=== PATIENT | female | born 1985 | race Caucasian/White ===

== ENCOUNTER 2017-03-10 06:09 | Inpatient (IN) ==
[2017-03-10] MEDS ORDERED: CARBOPROST 250 MCG/ML INJECTION IM PRN (06:14)
[2017-03-10] MEDS ORDERED: MAG-AL + SIM ORAL LIQUID 30ml PO PRN (06:14)
[2017-03-10] MEDS ORDERED: METHYLERGONOVINE 0.2 MG/ML INJECTION IM PRN (06:14)
[2017-03-10] MEDS ORDERED: ACETAMINOPHEN 500 MG TABLET PO PRN ×2 (06:14→16:25)
[2017-03-10] MEDS ORDERED: D5LR 1,000 ML IV PRN ×2 (06:14→06:20)
[2017-03-10] MEDS ORDERED: CALCIUM CARBONATE Chewable 500mg TABLET PO PRN ×2 (06:14→16:25)
[2017-03-10] MEDS ORDERED: LIDOCAINE 1% (10mg/ml) 2mL INJ PF SDV ID PRN (06:14)
--- OUTSIDE RECORDS SUMMARY | 2017-03-10 06:16 | External Medical Summary | Continuity of Care Document ---
:1985 Author Organization [facility] Address [address] [place], [place] [id number] Phone Care Team Providers Name Role Phone Antonino Humphreys MD Unavailable Unavailable Allergies, Adverse Reactions, Alerts Substance Reaction Severity Status WHEAT BRAN Unknown Active gluten Unknown Active OXYCODONE HCL Nausea/Vomiting Unknown Active milk Unknown Active Medications Medication Instructions Dosage Effective Dates (start - Status Comments stop) DHA+Complete - Active 30 mg-975 mcg-300 mg oral pack Problems Condition Effective Dates (start - stop) Clinical Status Iodine-deficiency related diffuse - (endemic) goiter Encounter For Screening For - Malformations 36 weeks gestation of - Threatened Iodine-deficiency related diffuse - (endemic) goiter Encntr screen for infections w sexl - mode of transmiss Encounter for screening for oth - infec/parastc diseases Encounter for suprvsn of normal - , first trimester Encounter for screening of - mother 9 weeks gestation of - Missed AB Threatened - Threatened Threatened - Low lying placenta NOS or w/out - hemorrhage, third trimester Encounter for suprvsn of normal - , third trimester 30 weeks gestation of - Low lying placenta NOS or w/out - hemorrhage, third trimester 30 weeks gestation of - Encounter for suprvsn of normal - , first trimester 13 weeks gestation of - Encounter for suprvsn of normal - , second trimester 20 weeks gestation of - Encounter for suprvsn of normal - , second trimester 24 weeks gestation of - Encounter for suprvsn of normal - , second trimester 17 weeks gestation of - Encounter for suprvsn of normal - , third trimester 34 weeks gestation of - Encounter for suprvsn of normal - , third trimester 32 weeks gestation of - Encounter for suprvsn of normal - , third trimester 28 weeks gestation of - Encounter for suprvsn of normal - , third trimester 37 weeks gestation of - Encounter for suprvsn of normal - , third trimester 39 weeks gestation of - Encounter for suprvsn of normal - , third trimester 38 weeks gestation of - Encounter for suprvsn of normal - , third trimester 36 weeks gestation of - Encounter for screening of - mother 20 weeks gestation of - Procedures Procedure Date Ultrasnd preg uterus, flwup/repeat Results Test Name Date and Time Measure Units Reference Range Abnormal Flag Comments Unknown Advance Directives Directive Yes / No Effective Date File Name Unknown Encounters Encounter Practice Location Reason(s) Diagnoses Date Provider Care Team Description For Visit Members Luisa Urban Encounter for Casper Referring In Womens suprvsn of normal 6-201 [place]. 700 Provider: Danilo EPPS, , third 7 Medical Antonino GALAVIZ Box [id number] weeks [facility] [place], gestation of Moe Fine, [address], 120, Luis Manuel [place], [place], [place], [id number], [place], [place], [id number] [place], [address]. tel:[phone] , [place]. tel:[phone] tel:[phone] Luisa Urban Encounter for Oct-1 [place] Referring In Womens suprvsn of normal 9-201 [place]. 700 Provider: Danilo EPPS, , third 7 Medical Antonino Anderson [email or web address] weeks [facility] 1522, gestation of Moe Fine, [address], 120, Luis Manuel [place], [place], [place], [id number], [place], [place], [place] [id number] [place], [address]. tel: , [place]. tel: tel:[phone] Luisa Urban Encounter for Oct-1 [place] Referring In Womens suprvsn of normal 2-201 [place]. 700 Provider: Danilo EPPS, , third 7 Medical Antonino Anderson [id number] weeks [facility] 1522, gestation of Moe Fine, [address], 120, [place], [place], [place], [id number], [place], [place], [place] [id number] [place], [address]. tel: , [place]. tel: tel:[phone] Luisa Urban Encounter for Oct-0 [place] Referring In Womens suprvsn of normal 5-201 [place]. 700 Provider: Danilo EPPS, , third 7 [facility] Antonino Anderson [id number] weeks [facility] 1522, gestation of Moe Fine, [address], 120, [place], [place], [place], [id number], [place], [place], [place] [id number] [place], [address]. tel: , [place]. tel: tel:[phone] Luisa Urban Iodine-deficiency Oct-0 [place] Referring In Womens Ultrasound related diffuse 5-201 [place]. 700 Provider: Danilo EPPS, (endemic) 7 [facility] Antonino [facility] 1522, For Moe Fine, [address], Screening For 120, Luis Manuel [place], [id number] [place], St, [id number], weeks gestation [place], [place], [place] [id number] [place], [address]. tel: , [place]. tel: tel: [phone] [facility] Encounter for Sep-2 [place] Referring In Womens suprvsn of normal 1-201 [place]. 700 Provider: Danilo EPPS, , third 7 [facility] [id number] weeks Center [facility] 1522, gestation of Moe Fine, [address], 120, [place], [place], St, [id number], [place], [place], [id number] [place], [address]. tel: , [place]. tel: tel: [phone] [facility] Encounter for Sep-0 [place] Referring In Womens suprvsn of normal 7-201 [place]. 700 Provider: Danilo EPPS, , third 7 [facility] [email or web address] weeks [facility] 1522, gestation of Moe Fine, [address], 120, [place], [place], , , [place], [place], [id number] [place], [address]. tel: , [place]. tel: tel: [phone] Luisa Urban Low lying Aug-2 [place] Referring In Womens placenta NOS or 4-201 [place]. 700 Provider: Danilo EPPS, w/out hemorrhage, 7 [facility] 1522, trimesterEncounte Moe Fine, [address], r for suprvsn of 120, Luis Manuel [place], normal , [place], , , third [id number] [place], [place], [place] [id number] [place], [address]. tel: of , [place]. tel: tel: [phone] [facility] Low lying Aug-2 [place] Referring In Womens Ultrasound placenta NOS or 4-201 [place]. 700 Provider: Danilo EPPS, w/out hemorrhage, 7 [facility] third [id number] [facility] 1522, weeks gestation Moe Fine, [address], of 120, Luis Manuel [place], [place], , , [place], [place], [place] [id number] [place], [address]. tel: , [place]. tel: tel:[phone] Luisa Urban Encounter for Aug-0 [place] Referring In Womens suprvsn of normal 8-201 [place]. 700 Provider: Danilo EPPS, , third 7 Medical Antonino PO Box [id number] weeks [facility] 1522, gestation of Moe Fine, [address], 120, Luis Manuel [place], [place], St, [id number], [place], [place], [id number] [place], [address]. tel: , [place]. tel: tel:[phone] Luisa Urban Encounter for Ankit-1 [place] Referring In Womens suprvsn of normal 3-201 [place]. 700 Provider: Danilo EPPS, , second 7 Medical [facility] [id number] weeks [facility] 1522, gestation of Moe Fine, [address], 120, Luis Manuel [place], [place], , [id number], [place], [place], [id number] [place], [address]. tel: , [place]. tel: tel:[phone] Luisa Urban Encounter for Ray-1 [place] Referring In Womens suprvsn of normal 5-201 [place]. 700 Provider: Danilo EPPS, , second 7 [facility] Box [id number] weeks [facility] 1522, gestation of Moe Fine, [address], 120, Luis Manuel G[place], [place] , , [place], [place], [id number] [place], [address]. tel: , [place]. tel: tel:[phone] Luisa Urban Encounter for Ray-1 [place] Referring In Womens Ultrasound 5-201 [place]. 700 Provider: Danilo EPPS, screening of 7 Medical Antonino PO Box [id number] weeks [facility] 1522, gestation of Moe Fine, [address], 120, Luis Manuel [place], [place] [address], , [place], [place], [id number] [place], [address]. tel: , [place]. tel: tel: [phone] Luisa Urban Encounter for May-2 [place] Referring In Womens suprvsn of normal 3-201 [place]. 700 Provider: Danilo EPPS, , second 7 [facility] [id number] weeks Center [facility] 1522, gestation of Moe Fine, [address], 120, Luis Manuel [place], [facility], , [place], [facility] [id number] [place], [address]. tel: , [place]. tel: tel:[phone] Luisa Urban Encounter for Apr-2 [place] Referring In Womens suprvsn of normal 6-201 [place]. 700 Provider: Danilo EPPS, , first 7 [facility] [email or web address] weeks Center [facility] 1522, gestation of Moe Fine, [address], 120, Luis Manuel [place], [place], , , [place], [place], [id number] [place], [address]. tel: , [place]. tel: tel:[phone] Luisa Urban Iodine-deficiency Mar-3 [place] Referring In Womens related diffuse 0-201 [place]. 700 Provider: Danilo EPPS, (endemic) 7 [facility] goiterEncntr [facility] 152, screen for Moe Fine, [address], infections w sexl 120, Luis Manuel [place], mode of [facility], , transmissEncounte [place], [facility] r for screening [id number] [place], [address]. tel: for [facility] , . tel: infec/parastc tel: diseasesEncounter [phone] for suprvsn of normal , first trimesterEncounte r for screening of mother9 weeks gestation of [facility] Missed AB Nov-0 [place] In Womens 6-201 [place]. 700 Danilo EPPS, 6 [facility] 1522, Moe Fine, 120, [place], [place], , [place], [id number] tel: , [place]. tel: [phone] [facility] Threatened Nov-0 [place] Referring In Womens 4-201 [place]. 700 Provider: Danilo EPPS, [address] [place] [address], , Moe Hale, [address], 120, [facility], [place], , , [place], [place], [id number] [place], [address]. tel: , [place]. tel: tel:[phone] [facility] Threatened Nov-0 [place] Referring In Womens 2-201 [place]. 700 Provider: Danilo EPPS, [address] [place] [address], , Moe Hale, [address], 120, [facility], [place], , , [place], [place], [id number] [place], [address]. tel: , [place]. tel: tel:[phone] [facility] Threatened Nov-0 [place] In Womens 1-201 [place]. 700 Danilo EPPS, [address] [address], , Moe Horta, [facility], [place], [place], , [place], [id number] tel: , [place]. tel: [phone] [facility] Threatened Nov-0 [place] Referring In Womens 1-201 [place]. 700 Provider: Danilo EPPS, [address] [place] [id number], , Moe Hale, [address], 120, [facility], [place], , , [place], [place], [id number] [place], [address]. tel: , [place]. tel: tel: [phone] Luisa Urban Ankit-1 [place] Referring In Womens 6-201 [place]. 700 Provider: Danilo EPPS, [address] [place] [address], , Moe Hale, [address], 120, [place] Manuel [place], [place], , , [place], [facility] [id number] [place], [address]. tel: , [place]. tel: tel: [phone] [facility] Sep-1 Cee In Womens 7-201 [facility]. [facility] [place], 2 700 PO Box Medical 1522, [address], , [facility], 120, [id number], [place], [facility], tel: [phone] , [place]. tel: [phone] Luisa Urban Apr-1 [place] In Womens 6-201 [place]. 700 Health [place], 0 Medical PO Box Center 1522, , Moe Horta, 120, [place], [place], [id number], [place], [id number] tel: , [place]. tel: [phone] Family History Family Member Diagnosis Age At Onset Paternal Grandfather Kidney Cancer Paternal Grandfather Stroke Father Celiac Disease Maternal Grandfather Prostate Cancer Maternal Grandmother Cardiovascular Disease Paternal Grandmother Diabetes mellitus Brother Neurological Disorder Paternal Grandfather Brain Cancer Paternal Grandfather Prostate Cancer Maternal Grandmother Cancer, breast Immunizations Vaccine Date Status Comments Influenza, injectable, completed Source: New Immunization Record quadrivalent, preservative free, 3 yrs or older Tdap completed Source: New Immunization Record Payers Payer name Insurance type Covered alliance party ID Authorization(s) [facility] [id number] [facility] [id number] [facility] [id number] Social History Type Description Quantity Date Captured Unknown Vital Signs Date / Height Weight BMI Pulse Blood Temperature Respiratory Body Head BMI Time: Rate Pressure Rate Surface Circumference percentile Area Unknown Chief Complaint And Reason For Visit Unknown Chief Complaint And Reason For Visit Reason For Referral Reason For Referral Unknown Plan Of Care Date Type Action Status Future Order: Radiology Order Ultrasound OB Follow-up ([id number]) Ordered Future Order: Radiology Order Ultrasound OB Follow-up ([id number]) Ordered Future Order: Radiology Order Complete OB Ultrasound > 14 Ordered Weeks ([id number]) Date Type Problem Goal Intervention Status Start Date Unknown. History Of Present Illness Encounter Date Complaint History Of Present Illness This patient has no known history of present illness Functional Status Encounter Date Functional Assessment Cognitive Assessment Unknown Medications Administered Medication Instructions Dosage Effective Dates (start - stop) Status Comments Drug Treatment Unknown Instructions Date Instruction Additional Information HIV and other routine tests risk factors identified by history anticipated course of care nutrition and weight gain counseling, special diet toxoplasmosis precautions (cats / raw meat) sexual activity exercise indications for ultrasound influenza vaccine environmental / work hazards travel use of any medications (including supplements, vitamins, herbs, OTC drugs) domestic violence seat belt use childbirth classes / hospital facilities hospital registration new ob handbook
--- OUTSIDE RECORDS SUMMARY | 2017-03-10 06:16 | External Medical Summary | Continuity of Care Document ---
:1985 Author Organization [facility] Address [address] [place], [place] [id number] Phone Care Team Providers Name Role Phone [...] Effective Dates (start - stop) Clinical Status Encounter for suprvsn of normal - , third trimester 34 weeks gestation of - Threatened Iodine-deficiency related diffuse - (endemic) goiter Encntr screen for infections w sexl - mode of transmiss Encounter for screening for oth - infec/parastc diseases Encounter for suprvsn of normal - , first trimester Encounter for screening of - mother 9 weeks gestation of - Iodine-deficiency related diffuse - (endemic) goiter Encounter For Screening For - Malformations 36 weeks gestation of - Missed AB Threatened [...] weeks gestation of - Procedures Procedure Date OB Visit No Charge Results Test Name Date and Time Measure Units Reference Range Abnormal Flag Comments Unknown Advance Directives Directive Yes / No Effective Date File Name Unknown Encounters Encounter Practice Location Reason(s) Diagnoses Date Provider Care Team Description For Visit Members Luisa Urban Encounter for Oct-0 [place] Referring In Womens suprvsn of normal 5-201 [place]. 700 Provider: Danilo EPPS, , third 7 Medical Antonino Anderson [id number] weeks [facility] 1522, gestation of Moe Fine, [address], 120, Luis Manuel [place], [place], , [id number], [place], [facility] [id number] [place], [address]. tel:[phone] , [place]. tel:[phone] [phone] Luisa Urban Iodine-deficiency Oct-0 [place] Referring In Womens Ultrasound related diffuse 5-201 [place]. 700 Provider: Danilo EPPS, (endemic) 7 Medical Antonino GALAVIZ Box [facility] 1522, For Moe Fine [address], Screening For 120, Luis Manuel [place], [id number] [place], , , weeks gestation [facility], of [id number] [place], [address]. tel: , [place]. tel: tel:[phone] Luisa Urban Encounter for Sep-2 [place] Referring In Womens suprvsn of normal 1-201 [place]. 700 Provider: Danilo EPPS, , third 7 Medical Antonino GALAVIZ Box [id number] weeks Center [facility] 1522, gestation of Moe Fine, [address], 120, Luis Manuel [place], [place], , [id number], [place], [place], [place] [id number] [place], [address]. tel: , [place]. tel: tel:[phone] Luisa Urban Encounter for Sep-0 [place] Referring In Womens suprvsn of normal 7-201 [place]. 700 Provider: Danilo EPPS, , third 7 Medical Antonino Anderson [id number] weeks Center [facility] 1522, gestation of Moe Fine, [address], 120, Luis Manuel [place], [facility], [id number], [place], [place], [id number] [place], [address]. tel: , [place]. tel: tel: [phone] Luisa Urban Low lying Aug-2 [place] Referring In Womens placenta NOS or 4-201 [place]. 700 Provider: Danilo EPPS, w/out hemorrhage, 7 [facility] Antonino Justin third [facility] 1522, trimesterEncounte Moe Fine, [address], r for suprvsn of 120, Luis Manuel [place], normal , [place], , [id number], third [id number] [facility], weeks gestation [id number] [place], [address]. tel: of , [place]. tel: tel:[phone] Luisa Urban Low lying Aug-2 [place] Referring In Womens Ultrasound placenta NOS or 4-201 [place]. 700 Provider: Danilo EPPS, w/out hemorrhage, 7 [facility] Antonino GALAVIZ Box third [id number] [facility] 1522, weeks gestation Moe Fine, [address], of 120, [place], [place], St, [id number], [place], [facility] [id number] [place], [address]. tel: , [place]. tel: tel:[phone] Luisa Urban Encounter for Aug-0 [place] Referring In Womens suprvsn of normal 8-201 [place]. 700 Provider: Danilo EPPS, , third 7 Medical Antonino GALAVIZ Box [id number] weeks [facility] 1522, gestation of Moe Fine, [address], 120, [place] Manuel [place], [place], St, [id number], [place], [place], [id number] [place], [address]. tel: , [place]. tel: tel: [phone] Luisa Urban Encounter for Ankit-1 [place] Referring In Womens suprvsn of normal 3-201 [place]. 700 Provider: Danilo EPPS, , second 7 Medical Antonino Anderson [id number] weeks [facility] 1522, gestation of Moe Fine, [address], 120, [place], [place], [place], [id number], [place], [facility] [id number] [place], [address]. tel: , [place]. tel: tel:[phone] Luisa Urban Encounter for Ray-1 [place] Referring In Womens suprvsn of normal 5-201 [place]. 700 Provider: Danilo EPPS, , second 7 Medical Antonino Anderson [email or web address] weeks [facility] 1522, gestation of Moe Fine, [address], 120, [place], [place], St, [id number], [place], [place], [id number] [place], [address]. tel: , [place]. tel: tel:[phone] Luisa Urban Encounter for Ray-1 [place] Referring In Womens Ultrasound 5-201 [place]. 700 Provider: Danilo EPPS, screening of 7 Medical Antonino GALAVIZ Box [id number] weeks [facility] 1522, gestation of Moe Fine, [address], 120, [place], [place], St, [id number], [place], [facility] [id number] [place], [address]. tel:+ , [place]. tel: tel:[phone] Luisa Urban Encounter for May-2 [place] Referring In Womens suprvsn of normal 3-201 [place]. 700 Provider: Danilo EPPS, , second 7 [facility] [id number] weeks Center [facility] 1522, gestation of Moe Fine, [address], 120, [place], [place], , , [place], [facility] [id number] [place], [address]. tel:+ , [place]. tel: tel:[phone] Luisa Urban Encounter for Apr-2 [place] Referring In Womens suprvsn of normal 6-201 [place]. 700 Provider: Danilo EPPS, , first 7 [facility] [id number] weeks Center [facility] 1522, gestation of Moe Fine, [address], 120, [place], [place], , , [place], [facility] [id number] [place], [address]. tel: , [place]. tel: tel: [phone] Luisa Urban Iodine-deficiency Mar-3 [place] Referring In Womens related diffuse 0-201 [place]. 700 Provider: Danilo EPPS, (endemic) 7 [facility] goiterEncntr [facility] 1522, screen for Moe Fine, [address], infections w sexl 120, Luis Manuel [place], mode of [place], , , transmissEncounte [place], [facility] r for screening [id number] [place], [address]. tel: for ot , . tel: infec/parastc tel: diseasesEncounter [phone] for suprvsn of normal , first trimesterEncounte r for screening of mother9 weeks gestation of Luisa Urban Missed AB Nov-0 [place] In Womens 6-201 [place]. 700 [facility] [place], 6 [facility] 1522, , Moe Horta, 120, [place], [place], , [place], [id number] tel: , [place]. tel: [phone] Luisa Urban Threatened Nov-0 [place] Referring In Womens 4-201 [place]. 700 Provider: Danilo EPPS, [address] [address], , Moe Hale, [address], 120, [place], [place], , , [place], [place], [id number] [place], [address]. tel: , [place]. tel: tel: [phone] Luisa Urban Threatened Nov-0 [place] Referring In Womens 2-201 [place]. 700 Provider: Danilo EPPS, 6 [facility] [place], Moe Fine, [address], 120, Luis Manuel [place], [facility], [id number], [place], [place], [id number] [place], [address]. tel: , [place]. tel: tel: [phone] Luisa Urban Threatened Nov-0 [place] In Womens 1-201 [place]. 700 [facility] [place], [address] [address], , Moe Horta, 120, [place], [place], , [place], [place] [id number] tel: , [place]. tel: [phone] Luisa Urban Threatened Nov-0 [place] Referring In Womens 1-201 [place]. 700 Provider: Danilo EPPS, 6 [facility] 1522, Moe Fine, [address], 120, [place], [place], , , [place], [place], [id number] [place], [address]. tel: , [place]. tel: tel: [phone] Luisa Urban Ankit-1 [place] Referring In Womens 6-201 [place]. 700 Provider: Danilo EPPS, 3 [facility], , Moe O, [address], 120, Luis [place], [place], , [id number], [place], [facility] [address] [place], [address]. tel:+ , [place]. tel: tel: [phone] [facility] Sep-1 Cee In Womens 7-201 [facility]. [facility], 2 [address] [address], [place] [address], , Moe [place], 120, [id number], [place], [place], tel: [phone] , [place]. tel: [phone] [facility] Apr-1 [place] In Womens 6-201 [place]. 700 [facility], 0 Medical [facility] 1522, , Moe Horta, 120, [place], [place], [id number], [place], [id number] tel: , [place]. tel: [phone] Family History Family Member Diagnosis Age At Onset Paternal Grandfather Kidney Cancer Paternal Grandfather Stroke Father Celiac Disease Maternal Grandfather Prostate Cancer Maternal Grandmother Cardiovascular Disease Paternal Grandmother Diabetes mellitus Brother Neurological Disorder Paternal Grandfather Brain Cancer Paternal Grandfather Prostate Cancer Maternal Grandmother Cancer, breast Immunizations Vaccine Date Status Comments Tdap completed Source: New Immunization Record Payers Payer name Insurance type Covered green party ID Authorization(s) [facility] [id number] [facility] [id number] Social History Type Description Quantity Date Captured Alcohol Use Details Caffeine Use Details Unknown Tobacco Use Status Unknown Smoking Status Never smoker Vital Signs Date / Height Weight BMI Pulse Blood Temperature Respiratory Body Head BMI Time: Rate Pressure Rate Surface Circumference percentile Area 186.70 27.5 / lbs 7 mm[Hg] 10:15 kg/m AM eter (2) Chief Complaint And Reason For Visit Unknown Chief Complaint And Reason For Visit Reason For Referral Reason For Referral Unknown Plan Of Care Date Type Action Status Future Order: Radiology Order Ultrasound OB Follow-up ([id number]) Ordered Future Order: Radiology Order Ultrasound OB Follow-up ([id number]) Ordered Future Order: Radiology Order Complete OB Ultrasound > 14 Ordered Weeks ([id number]) Date Type Problem Goal Intervention Status Start [...]
--- OUTSIDE RECORDS SUMMARY | 2017-03-10 06:17 | External Medical Summary | Continuity of Care Document ---
:1985 Author Organization [facility] Address [address] [place], [place] [id number] Phone Care Team Providers Name Role Phone [...] third trimester 32 weeks gestation of - Threatened Iodine-deficiency related diffuse - (endemic) goiter Encounter for screening of - mother Encntr screen for infections w sexl - mode of transmiss Encounter for screening for oth - infec/parastc diseases Encounter for suprvsn of normal - , first trimester 9 weeks gestation of - Missed AB [...] 17 weeks gestation of - Encounter for screening of - mother 20 weeks gestation of - Encounter for suprvsn of normal - , second trimester 20 weeks gestation of - Encounter for suprvsn of normal - , second trimester 24 weeks gestation of - Encounter for suprvsn of normal - , third trimester 28 weeks gestation of - Low lying placenta NOS or w/out - hemorrhage, third trimester 30 weeks gestation of - Encounter for suprvsn of normal - , third trimester 34 weeks gestation of - Procedures Procedure Date OB Visit No Charge Results Test Name Date and Time Measure Units Reference Range Abnormal Flag Comments Unknown Advance Directives Directive Yes / No Effective Date File Name Unknown Encounters Encounter Practice Location Reason(s) Diagnoses Date Provider Care Team Description For Visit Members Luisa Urban Encounter for Sep-2 [place]per Referring In Womens suprvsn of normal 1-201 Campos. 700 Provider: Danilo EPPS, , third 7 Medical Antonino [address] [email or web address] weeks [facility] 1522, gestation of Moe Fine, Tiny Horta, 120, [facility], [facility], [id number], [place], [facility] [id number] [place], [address]. tel:+ , [place]. tel:137 tel: [phone] Luisa Urban Encounter for Sep-0 [place] Referring In Womens suprvsn of normal 7-201 Campos. 700 Provider: Danilo EPPS, , third 7 Medical Antonino GALAVIZ Box [email or web address] weeks [facility] 1522, gestation of Moe Fine, 70Irvin Horta, 120, [facility], [facility], [id number], [place], [facility] [id number] [place], [address]. tel: , [place]. tel:091 tel: [phone] Luisa Urban Low lying Aug-2 [place] Referring In Womens placenta NOS or 4-201 Campos. 700 Provider: Danilo EPPS, w/out hemorrhage, 7 [facility] third [facility] 1522, trimesterEncounte Moe Fine, [address] for suprvsn of 120, Luis Manuel [place], normal , [place], St, [id number], third [email or web address] [facility], weeks gestation [id number] [place], [address]. tel: of , [place]. tel: tel: [phone] Luisa Urban Low lying Aug-2 [place] Referring In Womens Ultrasound placenta NOS or 4-201 Campos. 700 Provider: Danilo EPPS, w/out hemorrhage, 7 [facility] third [email or web address] Center [facility] 1522, weeks gestation Moe Fine, [address], of 120, Luis Manuel [place], [place], , [id number], [place], [place], [id number] [place], [address]. tel: , [place]. tel: tel:[phone] Luisa Urban Encounter for Aug-0 [place] Referring In Womens suprvsn of normal 8-201 Campos. 700 Provider: Danilo EPPS, , third 7 Medical [facility] [email or web address] weeks [facility] 1522, gestation of Moe Fine, [address]Irvin [address] Mychal, 120, Luis Manuel [place], [place], , [id number], [place], [place] [id number] [place], [address]. tel: , [place]. tel: tel:[phone] Luisa Urban Encounter for Ankit-1 [place] Referring In Womens suprvsn of normal 3-201 Campos. 700 Provider: Danilo EPPS, , second 7 Medical [facility] Box [email or web address] weeks [facility] 1522, gestation of Moe Fine, 70Irvin [address] Mychal, 120, Luis Manuel [place], [place], , [id number], [place], [place] [id number] [place], [address]. tel: , [place]. tel: tel:[phone] Luisa Urban Encounter for Ray-1 [place]per Referring In Womens suprvsn of normal 5-201 Campos. 700 Provider: Danilo EPPS, , second 7 Medical Antonino GALAVIZ Box [email or web address] weeks [facility] 1522, gestation of Moe Fine, [address], 120, Luis Manuel [place], [place], St, [id number], [place], [place], [id number] [place], [address]. tel: , [place]. tel: tel:[phone] Luisa Urban Encounter for Ray-1 [place] Referring In Womens Ultrasound 5-201 Campos. 700 Provider: Danilo EPPS, screening of 7 Medical Antonino GALAVIZ Box [email or web address] weeks [facility] 1522, gestation of Moe Fine, Tiny E Mychla, 120, Luis Manuel [place], [place], St, [id number], [place], [place], [id number] [place], [address]. tel: , [place]. tel: tel:[phone] Luisa Urban Encounter for May-2 [place] Referring In Womens suprvsn of normal 3-201 Campos. 700 Provider: Danilo EPPS, , second 7 Medical Antonino GALAVIZ Box [email or web address] weeks [facility] 1522, gestation of Moe Fine, 70Irvin E Mychal, 120, Luis Manuel [place], [place], St, [id number], [place], [place], [id number] [place], [address]. tel: , [place]. tel: tel:[phone] Luisa Urban Encounter for Apr-2 [place] Referring In Womens suprvsn of normal 6-201 Campos. 700 Provider: Danilo EPPS, , first 7 Medical Antonino GALAVIZ Box [email or web address] weeks [facility] 1522, gestation of Moe Fine, Tiny E Mychal, 120, Luis Manuel GANDHI, [place], , [id number], [place], [place], [id number] [place], [address]. tel: , [place]. tel: tel:[phone] Luisa Urban Iodine-deficiency Mar-3 [place] Referring In Womens related diffuse 0-201 [place]. 700 Provider: Danilo EPPS, (endemic) 7 [facility] 152, for Moe Fine, Tiny Horta, screening of 120, Luis Manuel [place], motherEncntr [facility], , screen for [place], [place], infections [place] [id number] [place], [address]. tel: mode of , [place]. tel: transmissEncounte tel: r for screening [phone] for oth infec/parastc diseasesEncounter for suprvsn of normal , first trimester9 weeks gestation of [facility] Missed AB Nov-0 [place] In Womens 6-201 [place]. 700 Danilo EPPS, [address] [place] [address], Moe Fine, [facility], [place], [place], [id number], [place], [id number] tel: , [place]. tel: [phone] Luisa Urban Threatened Nov-0 [place] Referring In Womens 4-201 [place]. 700 Provider: Danilo EPPS, [address] [place] [address], Moe Fine [address], 120, [facility], [facility], , [place], [place], [address] [place], [address]. tel: , [place]. tel: tel: [phone] Luisa Urban Threatened Nov-0 [place] Referring In Womens 2-201 [place]. 700 Provider: Danilo EPPS, [address] [place] [address], Moe Fine [address], 120, [facility], [facility], , [place], [place], [id number] [place], [address]. tel: , [place]. tel: tel: [phone] Luisa Urban Threatened Nov-0 [place] In Womens 1-201 [place]. 700 Danilo EPPS, [address] [place] [address]11532, Moe Fine, 120, [place], [place], , [place], [id number] tel: , [place]. tel: [phone] Luisa Ba Nov-0 [place] Referring In Womens 1-201 [place]. 700 Provider: Danilo EPPS, [address] [place] [address], , Moe Hale, [address], [facility], [facility], [place], , , [place], [facility] [id number] [place], [address]. tel: , [place]. tel: tel: [phone] Luisa Urban Ankit-1 [place] Referring In Womens 6-201 [place]. 700 Provider: Danilo EPPS, [address] [place] [address], , Moe Hale, [address], [facility], [facility], [place], , , [place], [facility] [id number] [place], [address]. tel: , [place]. tel: tel: [phone] Luisa Urabn Sep-1 Cee In Womens 7-201 Princess. [facility], [address] [place] [address], [facility] [place], [facility], [id number], [facility], tel:[phone] , [place]. tel: [phone] Luisa Urban Apr-1 [place] In Womens 6-201 [place]. 700 Health [facility], [address] [place] [address], , Moe Horta, [facility], [place], [place], [id number], [place], [id number] tel: , [place]. tel: [phone] Family History Family Member Diagnosis Age At Onset Paternal Grandfather Kidney Cancer Paternal Grandfather Stroke Father Celiac Disease Maternal Grandfather Prostate Cancer Maternal Grandmother Cardiovascular Disease Paternal Grandmother Diabetes mellitus Brother Neurological Disorder Paternal Grandfather Brain Cancer Paternal Grandfather Prostate Cancer Maternal Grandmother Cancer, breast Immunizations Vaccine Date Status Comments Unknown Payers Payer name Insurance type Covered alliance party ID Authorization(s) BCMARCIA DEL ROSARIO [id number] Social History Type Description Quantity Date Captured Alcohol Use Details Caffeine Use Details Unknown Tobacco Use Status Unknown Smoking Status Never smoker Vital Signs Date / Height Weight BMI Pulse Blood Temperature Respiratory Body Head BMI Time: Rate Pressure Rate Surface Circumference percentile Area 183.50 27.0 116/2017 lbs 9 mm[Hg] 9:34 kg/m AM eter (2) Chief Complaint And Reason For Visit Unknown Chief Complaint And Reason For Visit Reason For Referral Reason For Referral Unknown Plan Of Care Date Type Action Status Appointment Beatriz Mendez BOOKED Appointment Beatriz Mendez BOOKED Future Order: Radiology Order Complete OB Ultrasound > 14 Ordered Weeks ([id number]) Future Order: Radiology Order Ultrasound OB Follow-up ([id number]) Ordered Date Type Problem Goal Intervention Status Start [...]
--- OUTSIDE RECORDS SUMMARY | 2017-03-10 06:17 | External Medical Summary | Continuity of Care Document ---
:1987 Author Organization [facility] Allergies Active Description Code Type Severity Reaction Onset Reported/ Identified Relationship Clinical to Patient Status Yes milk 8922 1 N/A N/A Yes WHEAT BRAN 7908 1 N/A N/A Yes Eggs EGGS 5 N/A N/A Yes gluten 7207 1 N/A N/A Yes OXYCODONE 1559 1 N/A Nausea/Vo HCL miting Medications Medication Packaging Start Date Stop Date Route Dosage Sig Tablet 11/27/2012 NOR-Q-D 6 take 1 tablet by oral route every day Capsule 08/15/2016 AMOXICILLIN 7 take 1 capsule by ORAL route every 8 hours Problems Date Dx Attending Type Code Diagnosis Diagnosed By Coded 03/15/2016 W V72.31 ROUTINE TONSORIAL ARTIST EXAMINATION 10/27/2016 Campos Shirley Z36 Encounter for screening of mother 10/27/2016 Campos Shirley Z3A.20 20 weeks gestation of 01/05/2017 Campos Shirley O44.43 Low lying placenta NOS or w/out hemorrhage, third trimester 01/05/2017 Campos Shirley Z3A.30 30 weeks gestation of 02/16/2017 W E01.0 Iodine-deficiency related diffuse (endemic) goiter 02/16/2017 W Z36.3 Encounter For Screening For Malformations 02/16/2017 W Z3A.36 36 weeks gestation of Procedures Code Description Performed By Performed On 08/28/2009 68291 Specimen handling/transport 08/28/2009 02416 Preventive checkup, new,18-39 yrs 10/27/2016 32005 Ultrasnd exam of preg uterus, compl 01/05/2017 13007 Ultrasnd preg uterus, flwup/repeat 02/16/2017 06162 Ultrasnd preg uterus, flwup/repeat 02/16/2017 31221 Immuniz admnin, 1 vac, sngl/combo TDAP 02/16/2017 97363 VACCINE >7 IM 02/23/2017 53008 Immuniz admnin, 1 vac, sngl/combo Flu 02/23/2017 75186 Vaccine - Quadrivalent Results Encounters ACCT No. Visit Discharge Status Pt. Type Provider Facility Loc./Unit Complaint Date/Time [id number] 02/02/2017 02/02/2017 [facility] Outpatient Casper, 10:10:00 23:59:59 Campos Thompson [id number] 01/19/2017 01/19/2017 [facility] Outpatient [place], 09:30:00 23:59:59 Campos Thompson [id number] 01/05/2017 01/05/2017 [facility] Outpatient Casper, 11:30:00 23:59:59 Campos Thompson [id number] 01/05/2017 01/05/2017 [facility] Outpatient Casper, 11:15:00 23:59:59 Campos Thompson [id number] 12/20/2016 12/20/2016 [facility] Outpatient Casper, 09:15:00 23:59:59 Campos Thompson [id number] 11/24/2016 11/24/2016 [facility] Outpatient Casper, 10:30:00 23:59:59 Campos Thompson [id number] 10/27/2016 10/27/2016 [facility] Outpatient Casper, 11:30:00 23:59:59 Campos Thompson [id number] 10/27/2016 10/27/2016 [facility] Outpatient Casper, 11:15:00 23:59:59 Campos Thompson [id number] 10/07/2016 10/07/2016 [facility] Outpatient Casper, 09:17:00 23:59:59 Campos Thompson [id number] 10/04/2016 10/04/2016 [facility] Outpatient Casper, 10:20:00 23:59:59 Campos Thompson [id number] 09/07/2016 09/07/2016 [facility] Outpatient Cas[place], 11:30:00 23:59:59 Campos Thompson [id number] 08/13/2016 08/13/2016 [facility] Outpatient [place], 18:32:00 23:59:59 Campos Thompson [id number] 08/11/2016 08/11/2016 [facility] Outpatient Casper, 13:15:00 23:59:59 Campos Thompson [id number] 06/08/2016 06/08/2016 [facility] Outpatient [place], 15:20:00 23:59:59 Campos Thompson [id number] 03/15/2016 03/15/2016 [facility] Trina Shirley, 09:20:00 23:59:59 Campos Thompson [id number] 02/23/2017 Document 09:45:00 Registration [id number] 02/16/2017 Document 13:00:00 Registration [id number] 02/16/2017 Document 12:45:00 Registration [id number] 03/15/2016 Document 09:46:16 Registration [id number] 08/28/2009 Document 09:30:00 Registration
--- OUTSIDE RECORDS SUMMARY | 2017-03-10 06:17 | External Medical Summary | Continuity of Care Document ---
:1987 Author Organization [facility] Address [address] [place], [place] [phone] Phone Care Team Providers Name Role Phone [...] Effective Dates (start - stop) Clinical Status Low lying placenta NOS or w/out - hemorrhage, third trimester 30 weeks gestation of - Threatened Iodine-deficiency related diffuse - (endemic) goiter Encntr screen for infections w sexl - mode of transmiss Encounter for screening for oth - infec/parastc diseases Encounter for suprvsn of normal - , first trimester Encounter for screening of - mother 9 weeks gestation of - Missed AB Threatened - Threatened Threatened - Encounter for suprvsn of normal - , first trimester 13 weeks gestation of - Encounter for suprvsn of normal - , second trimester 17 weeks gestation of - Encounter for suprvsn of normal - , second trimester 20 weeks gestation of - Encounter for suprvsn of normal - , second trimester 24 weeks gestation of - Low lying placenta NOS or w/out - hemorrhage, third trimester Encounter for suprvsn of normal - , third trimester 30 weeks gestation of - 20 weeks gestation of - Encounter for screening of - mother Encounter for suprvsn of normal - , third trimester 28 weeks gestation of - 32 weeks gestation of - Encounter for suprvsn of normal - , third trimester Procedures Procedure Date Ultrasnd preg uterus, flwup/repeat Results Test Name Date and Time Measure Units Reference Range Abnormal Flag Comments Unknown Advance Directives Directive Yes / No Effective Date File Name Unknown Encounters Encounter Practice Location Reason(s) Diagnoses Date Provider Care Team Description For Visit Members uLisa Urban 32 weeks Sep-0 [place] Referring In Womens gestation of 7-201 [place]. 700 Provider: Danilo EPPS pregnancyEncclint [address] [place] [address] Antonino [address] r for suprvsn of [place] [address], normal , Moe Fine, [address], third trimester 120, Luis Manuel [place], [facility], [id number], [facility] [id number] [place], [address]. tel: , [place]. tel: tel:[phone] [facility] Low lying Dec-2 [place] Referring In Womens placenta NOS or 4-201 Campos. 700 Provider: Danilo EPPS, w/out hemorrhage, Medical Antonino [address] [place] [address], [facility] Moe Fine, [address], r for suprvsn of 120, Luis Manuel [place], normal , [place], , [id number], third [email or web address] [facility] weeks [place] [id number] [place], [address]. tel: of , [place]. tel: tel:[phone] [facility] Low lying Aug-2 [place] Referring In Womens Ultrasound placenta NOS or 4-201 [place]. 700 Provider: Danilo EPPS, w/out hemorrhage, 7 Medical Antonino PO Box third [email or web address] [facility] 1522, weeks gestation Moe Fine, Tiny E Mychal, of 120, Luis Manuel [place], [place], St, [id number], [place], [place], [address] [place], [address]. tel:+ , [place]. tel: tel:[phone] Luisa Urban Encounter for Aug-0 [place] Referring In Womens suprvsn of normal 8-201 [place]. 700 Provider: Danilo EPPS, , third 7 Medical Antonino PO Box [email or web address] weeks [facility] 15[facility], gestation of Moe Fine, Tiny Horta, 120, Luis Manuel [place], [place] [address], [id number], [place], [place], [address] [place], [address]. tel:+ , [place]. tel: tel:[phone] Urban Encounter for Ankit-1 [place] Referring In Womens suprvsn of normal 3-201 [place]. 700 Provider: Dnailo EPPS, , second 7 Medical Antonino PO Box weeks [facility] 1522, gestation of Moe Fine [address], 120, Luis Manuel GANDHI, [address], [id number], [place], [place], [id number] [place], [address]. tel: , [place]. tel: tel:2440 [phone] Urban Encounter for Ray-1 [place] Referring In Womens suprvsn of normal 5-201 [place]. 700 Provider: Danilo EPPS, , second 7 Medical Antonino PO Box [email or web address] weeks Center [facility] 1522, gestation of Moe Fine, Tiny Horta, 120, Luis Manuel GANDHI, [address], [id number], [place], [place], [id number] [place], [address]. tel: , [place]. tel: tel:2440 [phone] Urban 20 weeks Ray-1 [place] Referring In Womens Ultrasound gestation of 5-201 [place]. 700 Provider: Danilo EPPS, pregnancyEncounte 7 Medical Antonino PO Box r for Center [facility] 1522, screening of Moe Fine, Tiny E Mychal, mother 120, Luis Manuel [place], [place], , [id number], [place], [facility] [id number] [place], [address]. tel:+ , [place]. tel: tel:[phone] Luisa Urban Encounter for May-2 [place] Referring In Womens suprvsn of normal 3-201 [place]. 700 Provider: Danilo EPPS, , second 7 Medical Antonino PO Box [email or web address] weeks Center [facility] 1522, gestation of Moe Fine, Tiny Horta, 120, Luis Manuel [place], [facility], , [place], [place], [address] [place], [address]. tel: , [place]. tel: tel:[phone] Luisa Urban Encounter for Apr-2 [place] Referring In Womens suprvsn of normal 6-201 [place]. 700 Provider: Danilo EPPS, , first 7 Medical Antonino PO Box [email or web address] weeks Center [facility] 1522, gestation of Moe Fine, Tiny Horta, 120, Luis Manuel [place], [place], , , [place], [place], [address] [place], [address]. tel:+ , [place]. tel: tel:[phone] Luisa Urban Iodine-deficiency Mar-3 [place] Referring In Womens related diffuse 0-201 [place]. 700 Provider: Danilo EPPS, (endemic) 7 [facility] Antonino PO Box goiterEncntr Center [facility] 1522, screen for Moe Fine [address], infections w sexl 120, Luis Manuel [place], mode of [place] , , [facility], [facility] r for screening [id number] [place], [address]. tel: for ot , [place]. tel: infec/parastc tel:2440 [facility] [phone] for suprvsn of normal , first trimesterEncounte r for screening of mother9 weeks gestation of [facility] Missed AB Nov-0 [place] In Womens 6-201 [place]. 700 [facility], [address] [place] [address], , Moe Horta, 120, [place], [place], [id number], [place], [place] [id number] tel: , [place]. tel: [phone] [facility] Threatened Nov-0 [place] Referring In Womens 4-201 [place]. 700 Provider: Danilo EPPS [address] [place] [address], , Moe Hale, [address], [facility], [facility], [place], , [address], [place], [place], [id number] [place], [address]. tel: , [place]. tel: tel: [phone] [facility] Threatened Nov-0 [place] Referring In Womens 2-201 [place]. 700 Provider: Danilo EPPS [address] [place] [address], , Moe Hale, [address], 120, [facility], [place], , [id number], [place], [place], [id number] [place], [address]. tel: , [place]. tel: tel: [phone] [facility] Threatened Nov-0 [place] In Womens 1-201 [place]. 700 Danilo EPPS [address] [place] [address], , Moe Horta, 120, [place], [place], [id number], [place], [place] [id number] tel: , [place]. tel: [phone] [facility] Threatened Nov-0 [place] Referring In Womens 1-201 [place]. 700 Provider: Danilo EPPS [address] [place] [address], , Moe Hale, [address], 120, [facility], [place], , , [place], [place], [id number] [place], [address]. tel: , [place]. tel: tel: [phone] Luisa Urban Nov- [place]per Referring In Womens 6-201 [place]. 700 Provider: Health [facility], 3 Medical Antonino PO Box [facility] 1522, , Meo O, [address], 120, Luis Manuel [place], [place], St, [id number], [place], [place], [address] [place], [address]. tel: , [place]. tel: tel: [phone] Luisa Urban Sep- Cee In Womens 7-201 [facility]. [facility], 2 700 [address] [place] [address], [address], Moe GANDHI, 120, [id number], [place], [facility], tel: [phone] [phone] , [place]. tel: [phone] Luisa Urban Aug- [place] In Womens 6-201 [place]. 700 Health [facility], 0 Medical Box [place] 1522, , Moe Horta, 120, [place], [place], [id number], [place], [id number] tel: , [place]. tel: [phone] Family History Family Member Diagnosis Age At Onset Paternal Grandfather Kidney Cancer Paternal Grandfather Stroke Father Celiac Disease Maternal Grandfather Prostate Cancer Maternal Grandmother Cardiovascular Disease Paternal Grandmother Diabetes mellitus Brother Neurological Disorder Paternal Grandfather Brain Cancer Paternal Grandfather Prostate Cancer Maternal Grandmother Cancer, breast Immunizations Vaccine Date Status Comments Unknown Payers Payer name Insurance type Covered constitution party ID Authorization(s) [facility] [id number] Social History Type Description Quantity Date Captured Unknown Vital Signs Date / Height Weight BMI Pulse Blood Temperature Respiratory Body Head BMI Time: Rate Pressure Rate Surface Circumference percentile Area Unknown Chief Complaint And Reason For Visit Unknown Chief Complaint And Reason For Visit Reason For Referral Reason For Referral Unknown Plan Of Care Date Type Action Status Appointment Beatriz Mendez BOOKED Future Order: Radiology Order Ultrasound OB Follow-up ([id number]) Ordered Future Order: Radiology Order Complete OB Ultrasound > 14 Ordered Weeks ([id number]) Date Type Problem Goal Intervention Status Start [...]
--- OUTSIDE RECORDS SUMMARY | 2017-03-10 06:17 | External Medical Summary | Continuity of Care Document ---
:1985 Author Organization [facility] Address [address] [place], [place] [id number] Phone Care Team Providers Name Role Phone [...] - , third trimester Procedures Procedure Date OB Visit No Charge Results Test Name Date and Time Measure Units Reference Range Abnormal Flag Comments Unknown Advance Directives Directive Yes / No Effective Date File Name Unknown Encounters Encounter Practice Location Reason(s) Diagnoses Date Provider Care Team Description For Visit Members Luisa Urban 32 weeks Sep-0 [place] Referring In Womens gestation of 7-201 [place]. 700 Provider: Ector Watts Box r for suprvsn of [place] [address], normal , Moe Fine, [address], third trimester 120, Luis Manuel [place], [facility], [id number], [facility] [id number] [place], [address]. tel:+ , [place]. tel:752 tel: [phone] [facility] [place] Low lying Aug-2 [place] Referring In Womens placenta NOS or 4-201 [place]. 700 Provider: Danilo EPPS w/cristina hemorrhageTila [address] [place] [address], [facility] Moe Fine, [address], r for suprvsn of 120, Luis Manuel [place], normal , [place], , [id number], third [email or web address] [facility], [place] [id number] [place], [address]. tel: of , [place]. tel:[phone] tel: [phone] [facility] [place] Low lying Aug-2 [place] Referring In Womens Ultrasound placenta NOS or 4-201 [place]. 700 Provider: Health PA, w/out hemorrhage, 7 [facility] PO Box third [id number] [facility] 1522, weeks gestation Moe Fine, [address], of 120, Luis Manuel [place], [place], St, , [place], [place], [id number] [place], [address]. tel: , [place]. tel: tel:[phone] Luisa Urban Encounter for Aug-0 [place] Referring In Womens suprvsn of normal 8-201 [place]. 700 Provider: Danilo EPPS, , third 7 Medical Antonino PO Box [id number] weeks [facility] 1522, gestation of Moe Fine, [address], 120, Luis Manuel [place], [place], , , [place], [place], [id number] [place], [address]. tel: , [place]. tel: tel:[phone] Luisa Urban Encounter for Ankit-1 [place] Referring In Womens suprvsn of normal 3-201 [place]. 700 Provider: Danilo EPPS, , second 7 Medical Antonino Box [email or web address] weeks [facility] 1522, gestation of Moe Fine [address], 120, Luis Manuel [place], [place], , [id number], [place], [place], [id number] [place], [address]. tel: , [place]. tel: tel:[phone] Luisa Urban Encounter for Ray-1 [place] Referring In Womens suprvsn of normal 5-201 [place]pos. 700 Provider: Danilo EPPS, , second 7 Medical Antonino PO Box [email or web address] weeks [facility] 1522, gestation of Moe Fine, [address], 120, Luis Manuel GANDHI, [place] , , [place], [place], [id number] [place], [address]. tel: , [place]. tel: tel:2440 [phone] Urban 20 weeks Ray-1 [place] Referring In Womens Ultrasound gestation of 5-201 [place]pos. 700 Provider: Danilo EPPS, pregnancyEncounte 7 [facility] Box r for [facility] 1522, screening of Moe Fine, [address], mother 120, Luis Manuel [place], [place], , , [place], [facility] [id number] [place], [address]. tel: , [place]. tel: tel:[phone] [facility] [place] Encounter for May-2 [place] Referring In Womens suprvsn of normal 3-201 [place]. 700 Provider: Danilo EPPS, , second 7 Medical [facility] Box [id number] weeks [facility] 1522, gestation of Moe Fine, [address], 120, Luis Manuel [place], [place], , , [place], [facility] [id number] [place], [address]. tel: , [place]. tel: tel: [phone] Luisa Urban Encounter for Apr-2 [place] Referring In Womens suprvsn of normal 6-201 [place]. 700 Provider: Danilo EPPS, , first 7 Medical [facility] Box [email or web address] weeks [facility] 1522, gestation of Moe Fine, [address], 120, Luis Manuel [place], [place], , , [place], [facility] [id number] [place], [address]. tel: , [place]. tel: tel: [phone] Luisa Urban Iodine-deficiency Mar-3 [place] Referring In Womens related diffuse 0-201 [place]pos. 700 Provider: Danilo EPPS, (endemic) 7 [facility] Box goiterEncntr [facility] 1522, screen for Moe Fine, Tiny [address], infections w sexl 120, Luis Manuel [place], mode of [place] , , [facility] r for screening [id number] [place], [address]. tel: for ot , [place]. tel: infec/parastc [facility]: [facility] [phone] for suprvsn of normal , first trimesterEncounte r for screening of mother9 weeks gestation of [facility] [place] Missed AB Nov-0 [place] In Womens 6-201 [place]. 700 Danilo EPPS, [address] [place] [address], , Moe Horta, 120, [place], [place], [id number], [place], [id number] tel: , [place]. tel: [phone] [facility] [place] Threatened Nov-0 [place] Referring In Womens 4-201 [place]. 700 Provider: Danilo EPPS [address] [place] [address], , Moe Hale, [address], 120, [facility], [place], , , [place], [place], [id number] [place], [address]. tel: , [place]. tel: tel:[phone] [facility] [place] Threatened Nov-0 [place] Referring In Womens 2-201 [place]. 700 Provider: Sofi Watts [place] [address], , Moe Hale, [address], 120, [facility], [facility], [id number], [place], [place], [id number] [place], [address]. tel: , [place]. tel: tel:[phone] [facility] [place] Threatened Nov-0 [place] In Womens 1-201 [place]. 700 Danilo EPPS [address] [place] [address], , Moe Horta, 120, [place], [place], , [place], [place] [id number] tel: , [place]. tel: [phone] [facility] [place] Threatened Nov-0 [place] Referring In Womens 1-201 [place]. 700 Provider: Sofi Watts [facility] 152, , Moe Hale, [address], 120, [facility], [place], , [id number], [place], [place], [id number] [place], [address]. tel: , [place]. tel: tel:[phone] Luisa Urban Nov- Cas[place] Referring In Womens 6-201 [place]. 700 Provider: Health PA, 3 Medical [place] PO Box [facility] 1522, , Moe Hale, [address], 120, Luis Manuel [place], [place], , [id number], [place], [facility] [id number] [place], [address]. tel: , [place]. tel: tel: [phone] Luisa Urban Jan- Cee In Womens 7-201 Princess. [facility], 2 700 PO Box [facility] 152, [address], Moe GANDHI, 120, [id number], [place], [facility], tel: [phone] , [place]. tel: [phone] Luisa Urban Aug- Cas[place] In Womens 6-201 [place]. 700 Health PA, 0 Medical [address] [place] 1522, , Moe Horta, 120, [place], [place], [id number], [place], [id number] tel: , [place]. tel: [phone] Family History Family Member Diagnosis Age At Onset Paternal Grandfather Kidney Cancer Paternal Grandfather Stroke Father Celiac Disease Maternal Grandfather Prostate Cancer Maternal Grandmother Cardiovascular Disease Paternal Grandmother Diabetes mellitus Brother Neurological Disorder Paternal Grandfather Brain Cancer Paternal Grandfather Prostate Cancer Maternal Grandmother Cancer, breast Immunizations Vaccine Date Status Comments Unknown Payers Payer name Insurance type Covered constitution party ID Authorization(s) [facility] [id number] Social History Type Description Quantity Date Captured Alcohol Use Details Caffeine Use Details Unknown Tobacco Use Status Unknown Smoking Status Never smoker Vital Signs Date / Height Weight BMI Pulse Blood Temperature Respiratory Body Head BMI Time: Rate Pressure Rate Surface Circumference percentile Area 176.30 26.0 117/ lbs 3 mm[Hg] 11:31 kg/m AM eter (2) Chief Complaint And Reason For Visit Unknown Chief Complaint And Reason For Visit Reason For Referral Reason For Referral Unknown Plan Of Care Date Type Action Status Appointment Beatriz Mendez BOOKED Future Order: Radiology Order Ultrasound OB Follow-up ([id number]) Ordered Future Order: Radiology Order Complete OB Ultrasound > 14 Ordered Weeks ([id number]) Date Type Problem Goal Intervention Status Start [...]
--- OUTSIDE RECORDS SUMMARY | 2017-03-10 06:17 | External Medical Summary | Continuity of Care Document ---
:1985 Author Organization [facility] Address [address] [place], [place] [phone] Phone Care Team Providers Name Role Phone [...] third trimester 36 weeks gestation of - Threatened Iodine-deficiency [...] 38 weeks gestation of - Encounter for screening of - mother 20 weeks gestation of - Procedures Procedure Date Immuniz admnin, 1 vac, sngl/combo 19 Yrs + TDAP VACCINE >7 IM OB Visit No Charge Results Test Name Date and Time Measure Units Reference Range Abnormal Flag Comments Unknown Advance Directives Directive Yes / No Effective Date File Name Unknown Encounters Encounter Practice Location Reason(s) Diagnoses Date Provider Care Team Description For Visit Members Luisa Urban Encounter for [place] Referring In Womens suprvsn of normal 6-201 [place]. 700 Provider: Health PA, , third 7 Medical Antonino GALAVIZ Box [email or web address] weeks [facility] 1522, gestation of Moe Fine O, [address], 120, Luis Manuel G[place]HI, St [place], [id number], [place], [facility] [id number] [place], [address]. tel: , [place]. tel: tel:[phone] Luisa Urban Encounter for Oct-1 [place] Referring In Womens suprvsn of normal 9-201 [place]. 700 Provider: Danilo EPPS, , third 7 [facility] [email or web address] weeks [facility] 1522, gestation of Moe Fine, [address], 120, Luis Manuel [place], [place], St, [id number], [place], [place], [id number] [place], [address]. tel: , [place]. tel: tel:[phone] Luisa Urban Encounter for Oct-1 [place] Referring In Womens suprvsn of normal 2-201 [place]. 700 Provider: Danilo EPPS, , third 7 [facility] [email or web address] weeks [facility] 1522, gestation of Moe Fine, [address], 120, Luis Manuel [place], [place], St, [id number], [place], [facility] [id number] [place], [address]. tel: , [place]. tel: tel:[phone] Luisa Urban Encounter for Oct-0 [place] Referring In Womens suprvsn of normal 5-201 [place]. 700 Provider: Danilo EPPS, , third 7 [facility] [email or web address] weeks [facility] 1522, gestation of Moe Fine, [address], 120, Luis Manuel [place], [place] [address], , [place], [place], [id number] [place], [address]. tel: , [place]. tel: tel:[phone] Luisa Urban Iodine-deficiency Oct-0 [place] Referring In Womens Ultrasound related diffuse 5-201 [place]. 700 Provider: Danilo EPPS, (endemic) 7 [facility], For Moe Fine, Tiny Horta, Screening For 120, Luis Manuel GANDHI, [id number] [place], St, [id number], weeks gestation [place], [place], [place] [id number] [place], [address]. tel: , [place]. tel: tel: [phone] Luisa Urban Encounter for Sep-2 [place] Referring In Womens suprvsn of normal 1-201 [place]. 700 Provider: Danilo EPPS, , third 7 Medical [facility] [email or web address] weeks [facility] 1522, gestation of Moe Fine, [address], 120, Luis Manuel [place], [place], St, [id number], [place], [place], [id number] [place], [address]. tel: , [place]. tel: tel: [phone] Luisa Urban Encounter for Sep-0 [place] Referring In Womens suprvsn of normal 7-201 [place]. 700 Provider: Danilo EPPS, , third 7 [facility] [email or web address] weeks [facility] 1522, gestation of Moe Fine, [address], 120, Luis Manuel [place], [place], St, [id number], [place], [place], [id number] [place], [address]. tel: , [place]. tel: tel: [phone] Luisa Urban Low lying Aug-2 [place] Referring In Womens placenta NOS or 4-201 [place]. 700 Provider: Danilo EPPS, w/out hemorrhage, 7 [facility] third [facility] 1522, trimesterEncounte Moe Fine, [address], r for suprvsn of 120, Luis Manuel [place], normal , [place], St, [id number], third [id number] [place], [place], weeks gestation [id number] [place], [address]. tel: of , [place]. tel: tel: [phone] Luisa Urban Low lying Aug-2 [place] Referring In Womens Ultrasound placenta NOS or 4-201 [place]. 700 Provider: Danilo EPPS, w/out hemorrhage, 7 [facility] third [email or web address] [facility] 1522, weeks gestation Moe Fine, [address], of 120, Luis Manuel [place], [place], St, [id number], [place], [place], [id number] [place], [address]. tel:+ , [place]. tel: tel:[phone] Luisa Urban Encounter for Aug-0 [place] Referring In Womens suprvsn of normal 8-201 [place]. 700 Provider: Danilo EPPS, , third 7 Medical Antonino Anderson [email or web address] weeks [facility] 1522, gestation of Moe Fine, [address], 120, Luis Manuel [place], [place], St, [id number], [place], [place], [id number] [place], [address]. tel:+ , [place]. tel: tel:[phone] Luisa Urban Encounter for Ankit-1 [place] Referring In Womens suprvsn of normal 3-201 [place]. 700 Provider: Danilo EPPS, , second 7 Medical Antonino Anderson [id number] weeks [facility] 1522, gestation of Moe Fine, [address], 120, Luis Manuel [place], [place], St, [id number], [place], [place], [id number] [place], [address]. tel: , [place]. tel: tel:[phone] [phone] Luisa Urban Encounter for Ray-1 [place] Referring In Womens suprvsn of normal 5-201 [place]. 700 Provider: Danilo EPPS, , second 7 Medical Antonino Anderson weeks [facility] 1522, gestation of Moe Fine, [address], 120, Luis Manuel [place], [place], St, [id number], [place], [place], [id number] [place], [address]. tel:+ , [place]. tel: tel:[phone] Luisa Urban Encounter for Ray-1 [place] Referring In Womens Ultrasound 5-201 [place]. 700 Provider: Danilo EPPS, screening of 7 Medical Antonino Anderson weeks [facility] 1522, gestation of Moe Fine, [address], 120, Luis Manuel [place], [place], , [id number], [place], [facility] [id number] [place], [address]. tel:+ , [place]. tel: tel: [phone] Luisa Urban Encounter for May-2 [place] Referring In Womens suprvsn of normal 3-201 [place]. 700 Provider: Danilo EPPS, , second 7 [facility] Antonino ANASTACIA Anderson [email or web address] weeks [facility] 1522, gestation of Moe Fine, [address], 120, Luis Manuel [place], [place], , [id number], [place], [facility] [id number] [place], [address]. tel: , [place]. tel: tel: [phone] Luisa Urban Encounter for Apr-2 [place] Referring In Womens suprvsn of normal 6-201 [place]. 700 Provider: Danilo EPPS, , first 7 [facility] Antonino ANASTACIA Anderson [id number] weeks [facility] 1522, gestation of Moe Fine, [address], 120, Luis Manuel [place], [facility], [id number], [place], [facility] [id number] [place], [address]. tel: , [place]. tel: tel: [phone] Luisa Urban Iodine-deficiency Mar-3 [place] Referring In Womens related diffuse 0-201 [place]. 700 Provider: Danilo EPPS, (endemic) 7 [facility] ANASTACIA Justin goiterEncntr [facility] 1522, screen for Moe Fine, [address], infections w sexl 120, Luis Manuel [place], mode of [facility], , transmissEncounte [place], [facility] r for screening [id number] [place], [address]. tel: for ot , [place]. tel: infec/parastc tel: diseasesEncounter [phone] for suprvsn of normal , first trimesterEncounte r for screening of mother9 weeks gestation of Luisa Urban Missed AB Nov-0 [place] In Womens 6-201 [place]. 700 Health [place], 6 [facility] 1522, , Moe Horta, 120, [place], [place], , [place], [place] [id number] tel: , [place]. tel: [phone] [facility] [place] Threatened Nov-0 [place] Referring In Womens 4-201 [place]. 700 Provider: Danilo EPPS, [address] [place] [address], , Moe Hale, [address], 120, [facility], [place], , [id number], [place], [place], [id number] [place], [address]. tel: , [place]. tel: tel: [phone] [facility] [place] Threatened Nov-0 [place] Referring In Womens 2-201 [place]. 700 Provider: Danilo EPPS, [address] [place] [address], Moe Fine, [address], [facility], [facility], [facility], [id number], [place], [place], [id number] [place], [address]. tel: , [place]. tel: tel: [phone] [facility] [place] Threatened Nov-0 [place] In Womens 1-201 [place]. 700 Danilo EPPS, 6 [place] [address], , Moe Horta, 120, [place], [place], , [place], [place] [id number] tel: , [place]. tel: [phone] Luisa Urban Threatened Nov-0 [place] Referring In Womens 1-201 [place]. 700 Provider: Danilo EPPS, [address] [place] [address], Moe Fine, [address], 120, [facility], [place], , [id number], [place], [place], [id number] [place], [address]. tel: , [place]. tel: tel: [phone] Luisa Urban Ankit-1 [place] Referring In Womens 6-201 [place]. 700 Provider: Danilo EPPS, [address] [place] [address], , Moe O, [address], 120, Luis Manuel [place], [place], , [id number], [place], [facility] [id number] [place], [address]. tel:+ , [place]. tel: tel: [phone] [facility] [place] Sep-1 Cee In Womens 7-201 Princess. [facility], 2 [address] [place] [address], [address] Mychal, Moe GANDHI, 120, [id number], [place], [facility], tel: [phone] , [place]. tel: [phone] [facility] [place] Apr-1 [place] In Womens 6-201 [place]. 700 [facility], 0 Medical [facility] 1522, , Moe Horta, 120, [place], [place], [id number], [place], [id number] tel: , [place]. tel: [phone] Family History Family Member Diagnosis Age At [...] Insurance type Covered green party ID Authorization(s) [facility] [id number] [facility] [id number] [facility] [id number] Social History Type Description Quantity Date Captured Alcohol Use Details Caffeine Use Details Unknown Tobacco Use Status Unknown Smoking Status Never smoker Vital Signs Date / Height Weight BMI Pulse Blood Temperature Respiratory Body Head BMI Time: Rate Pressure Rate Surface Circumference percentile Area 189.00 27.9 124/76 -2017 lbs 1 mm[Hg] 1:07 kg/m PM eter (2) Chief Complaint And Reason For Visit Unknown Chief Complaint And Reason For Visit Reason For Referral Reason For Referral Unknown Plan Of Care Date Type Action Status Future Order: Radiology Order Ultrasound OB Follow-up ([id number]) Ordered Future Order: Radiology Order Ultrasound OB Follow-up ([id number]) Ordered Future Order: Radiology Order Complete OB Ultrasound > 14 Ordered Weeks ([id number]) Date Type Problem Goal Intervention Status Start [...]
--- OUTSIDE RECORDS SUMMARY | 2017-03-10 06:17 | External Medical Summary | Continuity of Care Document ---
:1985 Author Organization [facility] Address [address] [place], [place] [id number] Phone Care Team Providers Name Role Phone [...] third trimester 28 weeks gestation of - Threatened Iodine-deficiency related [...] - Encounter for screening of - mother Procedures Procedure Date OB Visit No Charge Hemoglobin count, colorimetric Hematocrit blood count Glucose test Venpnctr fngr/heel/ear stick routne Results Test Name Date and Time Measure Units Reference Range Abnormal Flag Comments Panel Description: Glucose [Mass/volume] in Serum or Plasma --1 hour post 50 g glucose PO GLUCOSE, GESTATIONAL 60 mg/dL <140 L Test performed at [facility] SCREEN (50G)-140 10:20:00 DIAGNOSTICS [id number] [place] [address]Licexvsy: RESHMA CROW DO,MPH Panel Description: HEMOGLOBIN + HEMATOCRIT HEMOGLOBIN 10:20:00 12.9 g/dL 11.7-15.5 N HEMATOCRIT 10:20:00 39.1 % 35.0-45.0 N Test performed at [facility] [id number] [place] [address]Bzctflwc: RESHMA CROW DO,MPH Advance Directives Directive Yes / No Effective Date File Name Unknown Encounters Encounter Practice Location Reason(s) Diagnoses Date Provider Care Team Description For Visit [facility] [place] Low lying [place] Referring In Womens placenta NOS or 4-201 Campos. 700 Provider: Danilo EPPS, w/out hemorrhage, [address] [facility] Petr 1522, trimesterEncclint Fine, Moe O, [address] for suprvsn of 120, Luis Manuel [place], normal , [place], St, [id number], third [email or web address] [place], [place], [place] weeks [place] [id number] [place], [address]. tel: of , [place]. tel: tel:[phone] Luisa Urban Low lying Aug-2 [place] Referring In Womens Ultrasound placenta NOS or 4-201 Campos. 700 Provider: Danilo EPPS, w/out hemorrhage, 7 [facility] third [email or web address] [facility] 1522, weeks gestation Moe Fine, [address], of 120, Luis Manuel GANDHI, [place], St, [id number], [place], [place], [id number] [place], [address]. tel: , [place]. tel: tel:[phone] Luisa [place] Encounter for Aug-0 [place] Referring In Womens suprvsn of normal 8-201 Campos. 700 Provider: Danilo EPPS, , third 7 [facility] [email or web address] weeks [facility] 1522, gestation of Moe Fine, [address], 120, Luis Manuel GANDHI, [place], , [id number], [place], [place], [id number] [place], [address]. tel: , [place]. tel: tel:[phone] Luisa [place] Encounter for Ankit-1 [place] Referring In Womens suprvsn of normal 3-201 Campos. 700 Provider: Danilo EPPS, , second 7 [facility] [email or web address] weeks [facility] 1522, gestation of Moe Fine, [address], 120, [place] , , [place], [place], [id number] [place], [address]. tel: , [place]. tel: tel:[phone] Luisa [place] Encounter for Ray-1 [place] Referring In Womens suprvsn of normal 5-201 Campos. 700 Provider: Danilo EPPS, , second 7 Medical [facility] [email or web address] weeks [facility] 1522, gestation of Moe Fine, [address], 120, [place] [address], , [place], [place], [id number] [place], [address]. tel: , [place]. tel: tel:[phone] Luisa [place] 20 weeks Ray-1 [place] Referring In Womens Ultrasound gestation of 5-201 Campos. 700 Provider: Danilo EPPS, pregnancyEncounte 7 [facility] Box r for [facility] 1522, screening of Moe Fine, [address], mother 120, Luis Manuel GANDHI, [place], St, , [place], [place], [id number] [place], [address]. tel: , [place]. tel: tel:[phone] Luisa [place] Encounter for May-2 [place] Referring In Womens suprvsn of normal 3-201 Campos. 700 Provider: Danilo EPPS, , second 7 [facility] [id number] weeks [facility] 1522, gestation of Moe Fine, [address], 120, Luis Manuel GANDHI, [place], , , [place], [place], [id number] [place], [address]. tel: , [place]. tel: tel: [phone] Luisa Urban Encounter for Apr-2 [place] Referring In Womens suprvsn of normal 6-201 Campos. 700 Provider: Danilo EPPS, , first 7 [facility] [email or web address] weeks [facility] 1522, gestation of Moe Fine, [address], 120, Luis Manuel GANDHI, [place], , , [place], [place], [id number] [place], [address]. tel: , [place]. tel: tel:[phone] Luisa Urban Iodine-deficiency Mar-3 [place] Referring In Womens related diffuse 0-201 Campos. 700 Provider: Danilo EPPS, (endemic) 7 [facility] goiterEncntr [facility] 1522, screen for Moe Fine, [address], infections w sexl 120, Luis Manuel GANDHI, mode of [place] , , [facility] r for [place] [id number] [place], [address]. tel: for oth , [place]. tel: infec/parastc tel:2440 diseasesEncounter [phone] for suprvsn of normal , first trimesterEncounte r for screening of mother9 weeks gestation of [facility] [place] Missed AB Nov-0 [place] In Womens 6-201 Fisher. 700 Danilo EPPS [address] [place] [address], , Moe Horta, [facility], [place], [place], [id number], [place], [id number] tel: , [place]. tel: [phone] [facility] [place] Threatened Nov-0 [place] Referring In Womens 4-201 Fisher. 700 Provider: Danilo EPPS [address] [place] [address], , Moe Hale, [address], [facility], [facility], [facility], [id number], [place], [facility] [id number] [place], [address]. tel: , [place]. tel: tel:[phone] [facility] [place] Threatened Nov-0 [place] Referring In Womens 2-201 Fisher. 700 Provider: Danilo EPPS [address] [place] [address], , Moe Hale, [address], [facility], [facility], [facility], , [place], [facility] [id number] [place], [address]. tel: , [place]. tel: tel:[phone] [facility] [place] Threatened Nov-0 [place] In Womens 1-201 Fisher. 700 Danilo EPPS, [address] [place] [address] 1522, , Meo Horta, [facility], [place], [place], [id number], [place], [id number] tel: , [place]. tel: [phone] Luisa [place] Threatened Nov-0 [place] Referring In Womens 1-201 Fisher. 700 Provider: Danilo EPPS [address] [place] [address] 152, , Moe Hale, [address], 120, Luis Manuel GANDHI, [place], , [id number], [place], [facility] [id number] [place], [address]. tel: , [place]. tel: tel: [phone] Luisa [place] Ankit- [place] Referring In Womens 6-201 Fisher. 700 Provider: Health [place], 3 Medical [place] PO Box [facility] 1522, , Moe Hale, [address], 120, Luis Manuel GANDHI, [place], , [id number], [place], [place], [id number] [place], [address]. tel: , [place]. tel: tel: [phone] Luisa Urban Sep-1 Cee In Womens 7-201 Princess[facility], 2 700 [address] [place] [address], [address], Moe GANDHI, [facility], , [facility], tel: [phone] , [place]. tel: [phone] Luisa [place] Apr- [place] In Womens 6-201 Fisher. 700 Health PA, 0 Medical [address] [facility] 1522, , Moe Horta, [facility], [place], [place], [id number], [place], [id number] tel: , [place]. tel: [phone] Family History Family Member Diagnosis Age At Onset Paternal Grandfather Kidney Cancer Paternal Grandfather Stroke Father Celiac Disease Maternal Grandfather Prostate Cancer Maternal Grandmother Cardiovascular Disease Paternal Grandmother Diabetes mellitus Brother Neurological Disorder Paternal Grandfather Brain Cancer Paternal Grandfather Prostate Cancer Maternal Grandmother Cancer, breast Immunizations Vaccine Date Status Comments Unknown Payers Payer name Insurance type Covered democrat ID Authorization(s) CASEY DEL ROSARIO [id number] Social History Type Description Quantity Date Captured Alcohol Use Details Caffeine Use Details Unknown Tobacco Use Status Unknown Smoking Status Never smoker Vital Signs Date / Height Weight BMI Pulse Blood Temperature Respiratory Body Head BMI Time: Rate Pressure Rate Surface Circumference percentile Area 176.20 26.0 118/2017 lbs 2 mm[Hg] 9:26 kg/m AM eter (2) Chief Complaint And Reason For Visit Unknown Chief Complaint And Reason For Visit Reason For Referral Reason For Referral Unknown Plan Of Care Date Type Action Status Appointment Beatriz Mendez BOOKED Future Order: Radiology Order Ultrasound OB Follow-up ([id number]) Ordered Future Order: Radiology Order Complete OB Ultrasound > 14 Ordered Weeks ([id number]) Date Type Problem Goal Intervention Status Start [...]
--- OUTSIDE RECORDS SUMMARY | 2017-03-10 06:17 | External Medical Summary | Continuity of Care Document ---
:1985 Author Organization [facility] Address [address] [place], [place] [phone] Phone Care Team Providers Name Role Phone [...] second trimester 24 weeks gestation of - Threatened Iodine-deficiency related [...] , second 7 Medical Antonino [address] [email or web address] weeks [facility] 1522, gestation of Moe Fine, [address] [place], 120, Luis Manuel [place], [place], St, [id number], [place], [facility] [id number] [place], [address]. tel:+ , [place]. tel: tel: [phone] Luisa [place] Encounter for [place] Referring In Womens suprvsn of normal 5-201 Campos. 700 Provider: Danilo EPPS, , second 7 Medical Antonino GALAVIZ Box [email or web address] weeks [facility] 1522, gestation of Moe Fine, [address] [place], 120, Luis Manuel [place], [place], , [id number], [place], [facility] [id number] [place], [address]. tel: , [place]. tel: tel: [phone] Luisa [place] Encounter for [place] Referring In Womens Ultrasound 5-201 Campos. 700 Provider: Danilo EPPS, screening of 7 Medical Antonino [address] [email or web address] weeks [facility] 1522, gestation of Moe Fine, [address] [place], 120, Luis Manuel [place], [place], St, [id number], [place], [place], [id number] [place], [address]. tel:+ , [place]. tel: tel: [phone] Luisa [place] Encounter for September- [place] Referring In Womens suprvsn of normal 3-201 Campos. 700 Provider: Danilo EPPS, , second 7 Medical Antonino [address] [id number] weeks [facility] 1522, gestation of oMe Fine, [address] [place], 120, [facility], [facility], [id number], [place], [facility] [id number] [place], [address]. tel:+ , [place]. tel: tel: [phone] Luisa [place] Encounter for Apr-2 [place] Referring In Womens suprvsn of normal 6-201 [place]. 700 Provider: Health [place], , first 7 [facility] [email or web address] weeks [facility] 1522, gestation of Moe Fine, [address], 120, [facility], [place], , [id number], [place], [place], [id number] [place], [address]. tel: , [place]. tel: tel: [phone] Luisa [place] Iodine-deficiency Mar-3 [place] Referring In Womens related diffuse 0-201 [place]. 700 Provider: Health [place], (endemic) 7 [facility] goiterEncntr [facility] 1522, screen for Moe Fine, [address], infections w sexl 120, [facility], mode of [facility], , transmissEncounte [place], [facility] r for screening [id number] [place] [address], [address]. tel: for [facility] , . tel: infec/parastc tel: diseasesEncounter [phone] for suprvsn of normal , first trimesterEncounte r for screening of mother9 weeks gestation of Luisa [place] Missed AB Nov-0 [place] In Womens 6-201 [place]. 700 Health [place], 6 [facility] 1522, Moe Fine, 120, [place], [place], [id number], [place], [id number] tel: , [place]. tel: [phone] Luisa [place] Threatened Nov-0 [place] Referring In Womens 4-201 [place]. 700 Provider: Health [place], 6 [facility] 1522, Moe Fine [address], 120, [facility], [facility], , [place], [place], [id number] [place], [address]. tel: , [place]. tel: tel:[phone] Luisa [place] Threatened Nov-0 [place] Referring In Womens 2-201 [place]. 700 Provider: Danilo EPPS, [address] [place] [address], , Moe Hael, [address], [facility], [facility], [facility], , [place], [place], [id number] [place], [address]. tel: , [place]. tel: tel: [phone] Luisa [place] Threatened Nov-0 [place] In Womens 1-201 [place]. 700 Danilo EPPS, [address] [place] [address], , Moe Horta, [facility], [place], [place], [id number], [place], [id number] tel: , [place]. tel: [phone] Luisa [place] Threatened Nov-0 [place] Referring In Womens 1-201 [place]. 700 Provider: Danilo EPPS, [address] [place] [address], , Moe Hale, [address], [facility], [facility], [facility], , [place], [place], [id number] [place], [address]. tel: , [place]. tel: tel: [phone] Luisa [place] Ankit-1 [place] Referring In Womens 6-201 [place]. 700 Provider: Danilo EPPS, [address] [place] [address], , Moe Hale, [address], 120, [facility], [facility], , [place], [place], [id number] [place], [address]. tel: , [place]. tel: tel:[phone] Luisa Urban Sep-1 Cee In Womens 7-201 Princess. Danilo EPPS, [address] [place] [address], [address], Moe [place], 120, [id number], [place], [place], tel: [phone] , [place]. tel: [phone] [facility] [place] In Womens 6-[address], 0 Medical [facility] 1522, Moe Fine, 120, [place], [place], [id number], [place], [place] [id number] tel: , [place]. tel: [phone] Family History Family Member Diagnosis Age At Onset Paternal Grandfather Kidney Cancer Paternal Grandfather Stroke Father Celiac Disease Maternal Grandfather Prostate Cancer Maternal Grandmother Cardiovascular Disease Paternal Grandmother Diabetes mellitus Brother Neurological Disorder Paternal Grandfather Brain Cancer Paternal Grandfather Prostate Cancer Maternal Grandmother Cancer, breast Immunizations Vaccine Date Status Comments Unknown Payers Payer name Insurance type Covered alliance party ID Authorization(s) [facility] [place] BL [id number] Social History Type Description Quantity Date Captured Alcohol Use Details Caffeine Use Details Unknown Tobacco Use Status Unknown Smoking Status Never smoker Vital Signs Date / Height Weight BMI Pulse Blood Temperature Respiratory Body Head BMI Time: Rate Pressure Rate Surface Circumference percentile Area 170.20 25.1 lbs 3 mm[Hg] 10:47 kg/m AM eter (2) Chief Complaint And Reason For Visit Unknown Chief Complaint And Reason For Visit Reason For Referral Reason For Referral Unknown Plan Of Care Date Type Action Status Appointment Beatriz Mendez BOOKED Future Order: Radiology Order Complete OB Ultrasound > 14 Ordered Weeks ([id number]) Date Type Problem Goal Intervention Status Start [...]
[2017-03-10] MEDS ORDERED: AMPICILLIN 2 GM in NS 100 ML IV ONE (06:45)
[2017-03-10] MEDS: LR 1,000 ML IV PRN ×4 (07:05→15:25)
[2017-03-10] MEDS: OXYTOCIN DRIP 30 UNIT/500 ML ML IV PRN ×2 (07:06→14:41)
[2017-03-10 07:28] VITALS: BMI 29.8
[2017-03-10] MEDS ORDERED: NALOXONE 0.4 MG/ML INJECTION IVP PRN (09:32)
[2017-03-10] MEDS ORDERED: ROPIVACAINE 1% 10MG/ML INJ 200 MG, SUFentanil 50 MCG in NS 100 ML EPI PRN (09:32)
[2017-03-10] MEDS ORDERED: DiphenhydrAMINE 50 MG/ML INJECTION IVP PRN ×2 (09:32→15:13)
[2017-03-10] MEDS ORDERED: ONDANSETRON 4 MG/2 ML INJECTION IVP PRN ×2 (09:32→15:17)
--- NOTE | 2017-03-10 09:32 | Anesthesia Preoperative Report ---
Anesthesia Epidural/Spinal Rec - Date and Time Date: 03/10/17 Procedure: Labor Epidural Plan: Epidural - Vital Signs Vital Signs: Temperature 97.9 F 03/10/17 07:22 Pulse Rate 75 03/10/17 07:22 Respiratory Rate 16 03/10/17 07:22 Blood Pressure 109/70 03/10/17 07:22 Pulse Oximetry 100 03/10/17 07:22 /Para: P:1 - Medictaions & Allergies Inpatient Medications: Current Medications Acetaminophen (Tylenol) 500 - 1,000 mg PO Q4H PRN PRN Reason: Pain Al Hydroxide/Mg Hydroxide (Maalox Plus) 30 ml PO Q3H PRN PRN Reason: Indigestion Calcium Carbonate (Tums) 500 - 1,000 mg PO Q2H PRN PRN Reason: Indigestion Carboprost Tromethamine (Hemabate) 250 mcg IM O PRN PRN Reason: .Downtime Ampicillin Sodium 1 gm/ Sodium (Chloride) 100 mls @ 200 mls/hr IV Q4H EDMUNDO Dextrose/Lactated Ringer's (Dextrose 5%-Lactated Ringers) 1,000 mls @ 125 mls/ hr IV .Q8H PRN PRN Reason: Labor Last Admin: 03/10/17 07:05 Dose: 125 mls/hr Lactated Ringer's (Lactated Ringers) 1,000 mls @ 999 mls/hr IV .Q1H1M PRN Last Admin: 03/10/17 07:05 Dose: 999 mls/hr Dextrose/Lactated Ringer's (Dextrose 5%-Lactated Ringers) 1,000 mls @ 125 mls/ hr IV .Q8H PRN PRN Reason: Labor Oxytocin (Pitocin Drip) 30 unit in 500 mls @ 2 mls/hr IV .Q24H PRN; Protocol PRN Reason: Induction/Augmentation Last Admin: 03/10/17 07:06 Dose: 2 mls/hr Lidocaine HCl (Xylocaine-Mpf 1% Vial) 0.2 mg ID O PRN PRN Reason: IV Start Methylergonovine Maleate (Methergine) 0.2 mg IM O PRN Misoprostol (Cytotec) 800 mcg NH ONCE PRN Allergies/Adverse Reactions: Allergies Allergy/AdvReac Type Severity Reaction Status Date / Time acetaminophen Allergy Mild RASH Verified 11/16/13 03:16 gluten Allergy Mild RASH Verified 11/16/13 03:16 milk Allergy Mild RASH Verified 11/16/13 03:16 wheat Allergy Mild RASH Verified 11/16/13 03:16 oxycodone HCl Allergy Mild RASH Uncoded 11/16/13 03:16 - Home Medications Home Medications: Home Medications Medication Instructions Recorded Confirmed Type No122/Iron/Folic Acid 1 tab PO DAILY 03/02/17 03/02/17 History [ Multi Tablet] - Medical History Respiratory: DENIES: Asthma, Bronchitis, Chronic Obstructive Pulmonary Disease (COPD), Dyspnea, Orthopnea, Pulmonary Embolism, Pneumonia, Upper Respiratory Infection, Pulmonary Edema, Sleep Apnea, Tuberculosis, Other Cardiovascular: Reports: Valvular Heart Disease (MVP. No tx indicated.), Other Gastrointestional: Reports: Gastroesophageal Reflux Disease (with ) Other History: Reports: Anesthesia Reactions (PONV with GETA) Anesthesia Reactions: nausea and vomiting - Surgical History Anesthesia Reactions: Nausea and Vomiting Hx Family Anesthesia Reaction: No History of Motion Sickness: No - Social History Smoking Status: Never smoker Substance Use Type: does not use - Pertinent Findings Lab Data: CBC and BMP 03/10/17 06:44 EKG Rhythm: Normal Sinus Rhythm - Physical Exam Respiratory Exam: lungs clear, bilateral breath sounds equal Cardiovascular Exam: regular rate and rhythm, no murmur - Airway Assessment Mallampati Score: II TMD: 3 Fingerbreadths Neck Extension: good Overall Assessment: may be difficult intubation - ASA ASA Score: 2 - Discussion Discussion: Discussed risks/options/alternatives of anesthesia and questions answered. Patient consents. Nursing pain assessment noted. Anesthesia Discussion: spouse Attestation Statement: Prior to the delivery of any anesthetic medication, I examined the patient, developed the plan, obtained the patient's consent and discussed the risk and benefits of the procedure with the patient/guardian.
[2017-03-10] MEDS ORDERED: AMPICILLIN 1 GM in NS 100 ML IV SCH (11:00)
[2017-03-10] MEDS ORDERED: KETAMINE 500 MG/10 ML INJECTION ONE (13:58)
[2017-03-10] MEDS ORDERED: MIDAZOLAM 2mg/2ml INJECTION ONE (13:59)
[2017-03-10] MEDS ORDERED: FentaNYL 250 MCG/5 ML INJECTION ONE (14:05)
[2017-03-10] MEDS ORDERED: ONDANSETRON 4 MG/2 ML INJECTION ONE (14:45)
[2017-03-10] MEDS ORDERED: DEXAMETHASONE 4 MG/ML INJECTION ONE (14:45)
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
[2017-03-10] MEDS ORDERED: NALOXONE 2 MG/2 ML INJECTION PFS IVP PRN (15:13)
[2017-03-10] MEDS ORDERED: METOCLOPRAMIDE 10mg/2ml INJECTION IVP PRN ×2 (15:13→15:40)
[2017-03-10] MEDS ORDERED: SCOPOLAMINE 1.5 MG PATCH TD SCH (15:30)
[2017-03-10] MEDS ORDERED: DiphenhydrAMINE 25 MG CAPSULE PO PRN (16:25)
[2017-03-10] MEDS ORDERED: MORPHINE PCA 30 MG/30 ML SYRINGE IV PRN (16:25)
[2017-03-10] MEDS ORDERED: OXYTOCIN DRIP 30 UNIT/500 ML ML IV SCH (16:25)
[2017-03-10] MEDS ORDERED: SALINE FLUSH 10ml SYRINGE IV PRN (16:25)
[2017-03-10] MEDS ORDERED: HYDROCORTISONE 2.5% CREAM 30gm RECTALLY PRN (16:25)
[2017-03-10] MEDS: D5LR 1,000 ML IV SCH (16:26)
--- NOTE | 2017-03-10 18:08 | Anesthesia Postoperative Note ---
- Date and Time Date: 03/10/17 Time: 15:50 - Status Patient Participated in Evaluation: Patient Participated in Person Vital Signs: Temperature 97.9 F 03/10/17 16:15 Pulse Rate 67 03/10/17 17:30 Respiratory Rate 16 03/10/17 17:30 Blood Pressure 113/57 03/10/17 17:30 Pulse Oximetry 96 03/10/17 17:30 Respiratory Function: Airway Patent Cardiovascular Function: Regular Pulse EKG: Sinus Rhythm Mental Status: Alert and Oriented Pain Intensity: 2 Hydration: IV Infusing Complications During Recover: None Apparent - Follow-Up Instructions Instructions: Per Surgeon
[2017-03-10] MEDS: IBUPROFEN 800 MG TABLET PO PRN (18:30)
[2017-03-10] MEDS: HYDROCODONE/APAP 5mg/325mg TABLET PO PRN (23:11)
[2017-03-11] MEDS: SIMETHICONE 80 MG CHEWABLE TABLET PO SCH ×4 (00:18→20:55)
[2017-03-11 02:29] VITALS: RESP 16
[2017-03-11] MEDS: D5LR 1,000 ML IV SCH ×2 (02:30→16:00)
[2017-03-11] MEDS: IBUPROFEN 800 MG TABLET PO PRN ×2 (05:20→14:24)
[2017-03-11] MEDS: DOCUSATE CALCIUM 240 MG CAPSULE PO SCH (09:50)
[2017-03-11] MEDS: HYDROCODONE/APAP 5mg/325mg TABLET PO PRN ×3 (09:50→20:53)
--- NOTE | 2017-03-11 12:54 | Progress Note ---
OB PP Progress Note Free Text - Date Date: 03/11/17 - Progress Note Progress Note: POD #1 doing well incision c/d/i disc surgery and restrictions and recovery cont routine care. q&a-krb
--- NOTE | 2017-03-11 14:24 | Operative Note ---
DATE OF SURGERY: 03/10/2017 PREOPERATIVE DIAGNOSIS 1. 31-year-old white female, G3, P1, at 39 weeks 3 days gestational age. 2. Pitocin induction of labor for logistics. 3. Dilated loops of bowel at 36-week sono. 4. GBS prophylaxis. 6. Non-reassuring FHT POSTOPERATIVE DIAGNOSIS 1. OP presentation. 2. Male infant, 5/7 Apgars, 3490gm (Jm Vasquezwell). PROCEDURE: Emergent low transverse section for bradycardia. ANESTHESIA: Epidural catheter dosing by Venkatesh Callahan CRNA, with some additional IV sedation. SURGEON: Campos Shirley MD ENGINE CLEANER: Christ Hart DO BRIEF DESCRIPTION This is a patient of mine that was being induced with a favorable cervix today at term for logistics. Pitocin reached a maximum of 18 milliunits a minute. It was turned down and then off because of heart tone issues. Prior to the we had an extended period of time of bradycardia in the 60s with the Pitocin off, so an emergent section was performed. Baby was found to be in the OP presentation, but there were no other obvious reasons for the distress. Placenta was sent to pathology. Surgery: The patient was prepped and draped in an emergent fashion. The patient passed the Allis test, so we began with a Pfannenstiel skin incision which was carried down to the fascia. The patient was noticeably hurting with this, so Anesthesia gave additional medicine through the IV. We continued on because of the emergent nature of the . Rectus fascia was extended with Salazar scissors and then dissected anteriorly and posteriorly. Then the muscles were divided. Peritoneum was isolated, entered and extended cephalad and caudad. Bladder blade was inserted and then I used a scalpel to make a low transverse incision in the low lower uterine segment of the uterus above the bladder and I extended it with my finger. Clear fluid was noted. Infant was in the OP presentation and wedged in the pelvis. Prior to this she had been stuck at 5 cm dilated. I delivered the baby from the vertex position without difficulty and the was received by Dr. Arden Shoemaker of Pediatrics. We clamped the cord long and let as much blood drain as possible. Once Dr. Shoemaker had taken the baby, then we removed the placenta and cleansed the interior of the uterus and then externalized it and closed with 0 Monocryl in a running locking fashion. Three additional [id number] sutures of 2-0 chromic were used to complete hemostasis. Then the posterior cul-de-sac was cleansed and the uterus was returned to the abdominal cavity. Hemostasis was reconfirmed and then the abdomen was closed in layers. Peritoneum was closed with 2-0 Vicryl in a running nonlocking fashion. Fascia was closed with 0 Vicryl in a running nonlocking fashion bilaterally from the lateral aspects medially and skin was closed using wide steve in a serial fashion. A single horizontal mattress suture of 3-0 Monocryl was used to keep the skin edges everted. Patient went to Recovery Room in stable condition. ROLANDA
[2017-03-12] MEDS: IBUPROFEN 800 MG TABLET PO PRN ×3 (00:35→12:52)
[2017-03-12] MEDS: SIMETHICONE 80 MG CHEWABLE TABLET PO SCH (02:33)
[2017-03-12] MEDS: HYDROCODONE/APAP 5mg/325mg TABLET PO PRN ×2 (08:37→14:10)
[2017-03-12 08:57] VITALS: O2SAT 97
[2017-03-12] MEDS: DOCUSATE CALCIUM 240 MG CAPSULE PO SCH (10:11)
[2017-03-12] MEDS: SIMETHICONE 80 MG CHEWABLE TABLET PO PRN ×2 (10:12→12:52)
[2017-03-12 12:08] VITALS: BP 131/73; PULSE 78; TEMP 98.4
--- NOTE | 2017-03-12 13:28 | Progress Note ---
OB PP Progress Note Free Text - Date Date: 03/12/17 - Progress Note Progress Note: vss af no c/o incision c/d/i - slight curling in on L side instructions reviewed desires dc f/u monday or mon for steve q&a
== END 2017-03-12 14:55 | disposition home or self-care (01) | DRG 766 ==
LOC: MC 06:09
PROVIDERS: ADMIT Obstetrics & Gynecology; ATTEND Obstetrics & Gynecology